=== PATIENT | male | born 1960 | race Caucasian/White ===

== ENCOUNTER 2025-05-26 22:44 | Inpatient (IN) | payer MEDICARE ==
[~2025-05-26] VITALS: Ht 167.6 cm; Wt 68.9 kg
[2025-05-26 22:54] VITALS: O2SAT 96
[2025-05-26] MEDS: SODIUM CHLORIDE 0.9% 1,000 ML IV ONE (23:30)
[2025-05-27] VITALS (86 sets, daily range): BP systolic 99–154; BP diastolic 57–126; PULSE 66–112; RESP 11–29; TEMP 36.8–37.2; O2SAT 94–100
[2025-05-27] MEDS: IOHEXOL-350 100 ML BOTTLE ONE (00:39)
[2025-05-27 00:46] LABS: BASOPHILS % 0.3 % (0.0-2.0); EOSINOPHILS % 0.2 % (0.0-5.0); HEMATOCRIT. 39.3 % (42.0-52.0); HEMOGLOBIN. 12.6 g/dL (14.0-18.0); LYMPHOCYTES % 13.1 % (20.0-50.0); MEAN PLATELET VOLUME 10.2 fl (7.4-10.4); MONOCYTES % 7.1 % (2.0-8.0); NEUTROPHILS % 79.3 % (40.0-76.0); PLATELET 320 x1000/uL (130-400); RED BLOOD CELL COUNT 4.30 mill/uL (4.7-6.1); RED CELL DISTRIBUTION WIDTH 15.7 % (11.6-14.6)
[2025-05-27 00:56] LABS: CREATININE 0.8 mg/dL (0.6-1.3)
[2025-05-27 00:57] LABS: UREA NITROGEN BLOOD 10 mg/dL (9-23)
[2025-05-27 00:58] LABS: ASPARTATE AMINOTRANSFERASE 38 IU/L (<34)
[2025-05-27 00:59] LABS: BILIRUBIN DIRECT < 0.1 mg/dL (<=3.0); BILIRUBIN TOTAL 0.3 mg/dL (0.1-1.0); PROTEIN TOTAL 6.8 g/dL (6.0-8.3)
[2025-05-27] MEDS ORDERED: MANNITOL 20% (20GM/100ML) BAG 500ML PREMIX IV ONE (01:15)
[2025-05-27] MEDS: LEVETIRACETAM 500MG PREMIX 100 ML IV ONE (01:20)
[2025-05-27 01:21] LABS: CLARITY URINE CLEAR (CLEAR); COLOR URINE YELLOW (YELLOW); GLUCOSE URINE 3+ (NEGATIVE); KETONES URINE 2+ (NEGATIVE); LEUKOCYTE ESTERASE URINE NEGATIVE (NEGATIVE); NITRITE URINE NEGATIVE (NEGATIVE); OCCULT BLOOD URINE NEGATIVE (NEGATIVE); PH URINE 5.5 (4.5-8.0); PROTEIN URINE NEGATIVE (NEGATIVE); SPECIFIC GRAVITY URINE 1.040 (1.005-1.030); UROBILINOGEN URINE 0.2 E.U./dL (0.2-1.0)
[2025-05-27 01:35] LABS: INR 1.0
[2025-05-27 01:35] LABS: BG DEOXYHEMOGLOBIN 72.2 % (0.0-5.0)
[2025-05-27] MEDS: MANNITOL 20% 250 ML IV NR (01:42)
[2025-05-27 04:15] LABS: SQUAMOUS EPITHELIAL CELL URINE FEW /lpf (RARE/1+)
[2025-05-27 04:17] LABS: RBC URINE 0-2 /hpf (0-2); WBC URINE 0-2 /hpf (0-2)
[2025-05-27 04:19] LABS: BACTERIA URINE NONE SEEN
[2025-05-27 04:20] LABS: YEAST URINE 1+
[2025-05-27] MEDS ORDERED: DEXTROSE 50% WATER 50ML SYRINGE IV PRN (04:30)
[2025-05-27] MEDS ORDERED: BLOOD SUGAR DIAGNOSTIC STRIP TEST SCH (04:30)
[2025-05-27] MEDS: BLOOD SUGAR DIAGNOSTIC STRIP TEST SCH ×2 (04:35→08:18)
[2025-05-27] MEDS: DEXT 5%/LACTATED RINGERS 1,000 ML IV SCH (04:35)
[2025-05-27] MEDS: INSULIN LISPRO 100 UNITS/ML SUBCUT NR (04:52)
[2025-05-27] MEDS: INSULIN LISPRO 100 UNITS/ML SUBCUT SCH ×2 (06:00→10:46)
[2025-05-27] MEDS ORDERED: INSULIN LISPRO 100 UNITS/ML SUBCUT SCH (07:00)
[2025-05-27] MEDS: LACTATED RINGERS 1,000 ML IV SCH (07:02)
[2025-05-27] MEDS: MAGNESIUM 2 G PREMIX 50 ML IV NR (08:36)
[2025-05-27] MEDS: LEVETIRACETAM 500MG PREMIX 100 ML IV SCH (08:36)
[2025-05-27] MEDS ORDERED: LEVETIRACETAM 500MG in NACL 100ML PREMIX IV SCH (09:00)
[2025-05-27 09:28] LABS: BASOPHILS % 0.1 % (0.0-2.0); EOSINOPHILS % 0.0 % (0.0-5.0); HEMATOCRIT. 39.8 % (42.0-52.0); HEMOGLOBIN. 13.0 g/dL (14.0-18.0); LYMPHOCYTES % 9.7 % (20.0-50.0); MEAN PLATELET VOLUME 10.2 fl (7.4-10.4); MONOCYTES % 4.6 % (2.0-8.0); NEUTROPHILS % 85.6 % (40.0-76.0); PLATELET 321 x1000/uL (130-400); RED BLOOD CELL COUNT 4.44 mill/uL (4.7-6.1); RED CELL DISTRIBUTION WIDTH 15.6 % (11.6-14.6)
[2025-05-27 09:41] LABS: CREATININE 0.6 mg/dL (0.6-1.3); TRIGLYCERIDE 158 mg/dL (0-150); UREA NITROGEN BLOOD 9 mg/dL (9-23)
[2025-05-27 09:42] LABS: LDL CHOLESTEROL 205 mg/dL (5-100)
[2025-05-27] MEDS ORDERED: INSULIN GLARGINE 100 UNITS/ML SUBCUT SCH (10:00)
[2025-05-27] MEDS: INSULIN GLARGINE 100 UNITS/ML SUBCUT SCH (10:31)
[2025-05-27] MEDS: MANNITOL 20% (20GM/100ML) BAG 500ML PREMIX IV SCH (15:44)
[2025-05-27 22:48] LABS: BG BASE EXCESS 2.4 mmol/L (-2.0-3.0); BG CARBOXYHEMOGLOBIN 1.3 % (0.5-1.5); BG DEOXYHEMOGLOBIN 3.7 % (0.0-5.0); BG FRACTION INSPIRED OXYGEN 21; BG HCO3 ACT 26.4 mmol/L (21.0-28.0); BG METHEMOGLOBIN 0.0 % (0.5-1.5); BG OXYGEN SATURATION 96.3 % (94.0-98.0); BG OXYHEMOGLOBIN 95.0 % (94.0-98.0); BG PCO2 38.8 mmHg (35.0-48.0); BG PH 7.450 (7.350-7.450); BG PO2 78.5 mmHg (83.0-108.0); BG SAMPLE SITE RIGHT RADIAL; BG TOTAL HEMOGLOBIN 14.1 g/dL (13.5-17.5); BG VENT MODE ROOM AIR
[2025-05-28] VITALS (99 sets, daily range): BP systolic 102–145; BP diastolic 58–86; PULSE 52–91; RESP 9–26; TEMP 36.4–37.3; O2SAT 95–100
[2025-05-28] MEDS: NICARDIPINE 100 MG in SODIUM CHLORIDE 0.9% 60 ML IV PRN (01:45)
[2025-05-28 05:34] LABS: BASOPHILS % 0.1 % (0.0-2.0); EOSINOPHILS % 0.0 % (0.0-5.0); HEMATOCRIT. 41.3 % (42.0-52.0); HEMOGLOBIN. 13.1 g/dL (14.0-18.0); LYMPHOCYTES % 25.1 % (20.0-50.0); MEAN PLATELET VOLUME 10.1 fl (7.4-10.4); MONOCYTES % 8.8 % (2.0-8.0); NEUTROPHILS % 66.0 % (40.0-76.0); PLATELET 295 x1000/uL (130-400); RED BLOOD CELL COUNT 4.50 mill/uL (4.7-6.1); RED CELL DISTRIBUTION WIDTH 16.2 % (11.6-14.6)
[2025-05-28 05:40] LABS: CREATININE 0.6 mg/dL (0.6-1.3)
[2025-05-28 05:41] LABS: UREA NITROGEN BLOOD 13 mg/dL (9-23)
[2025-05-28] MEDS ORDERED: MANNITOL 20% (20GM/100ML) BAG 500ML PREMIX IV ONE (06:45)
[2025-05-28] MEDS: MANNITOL 20% 100 ML IV NR (06:51)
[2025-05-29] VITALS (80 sets, daily range): BP systolic 113–146; BP diastolic 61–99; PULSE 73–95; RESP 14–24; TEMP 37.2–37.8; O2SAT 98–100
[2025-05-29] MEDS: NICARDIPINE 100 MG in SODIUM CHLORIDE 0.9% 60 ML IV PRN (06:05)
[2025-05-29 06:39] LABS: CREATININE 0.6 mg/dL (0.6-1.3); UREA NITROGEN BLOOD 11 mg/dL (9-23)
[2025-05-29 06:43] LABS: BASOPHILS % 0.2 % (0.0-2.0); EOSINOPHILS % 0.0 % (0.0-5.0); HEMATOCRIT. 41.8 % (42.0-52.0); HEMOGLOBIN. 13.4 g/dL (14.0-18.0); LYMPHOCYTES % 17.0 % (20.0-50.0); MEAN PLATELET VOLUME 10.4 fl (7.4-10.4); MONOCYTES % 9.4 % (2.0-8.0); NEUTROPHILS % 73.4 % (40.0-76.0); PLATELET 314 x1000/uL (130-400); RED BLOOD CELL COUNT 4.60 mill/uL (4.7-6.1); RED CELL DISTRIBUTION WIDTH 16.1 % (11.6-14.6)
[2025-05-29] MEDS: BLOOD SUGAR DIAGNOSTIC STRIP TEST SCH (11:19)
[2025-05-29] MEDS: KCL 20MEQ/100ML PREMIX 100 ML IV SCH (11:24)
[2025-05-29] MEDS: INSULIN LISPRO 100 UNITS/ML SUBCUT SCH (11:25)
[2025-05-30] VITALS (101 sets, daily range): BP systolic 105–143; BP diastolic 44–118; PULSE 73–111; RESP 11–22; TEMP 37.2–37.8; O2SAT 93–100
[2025-05-30 06:39] LABS: BASOPHILS % 0.3 % (0.0-2.0); EOSINOPHILS % 0.1 % (0.0-5.0); HEMATOCRIT. 45.3 % (42.0-52.0); HEMOGLOBIN. 14.5 g/dL (14.0-18.0); LYMPHOCYTES % 16.8 % (20.0-50.0); MEAN PLATELET VOLUME 10.4 fl (7.4-10.4); MONOCYTES % 13.1 % (2.0-8.0); NEUTROPHILS % 69.7 % (40.0-76.0); PLATELET 294 x1000/uL (130-400); RED BLOOD CELL COUNT 4.87 mill/uL (4.7-6.1); RED CELL DISTRIBUTION WIDTH 16.4 % (11.6-14.6)
[2025-05-30 06:52] LABS: CREATININE 0.6 mg/dL (0.6-1.3)
[2025-05-30 06:53] LABS: UREA NITROGEN BLOOD 10 mg/dL (9-23)
[2025-05-30] MEDS: IOHEXOL-350 100 ML BOTTLE ONE (08:40)
[2025-05-30] MEDS ORDERED: IPRATROPIUM/ALBUTEROL 0.5-3(2.5)MG/3ML NEB HHN PRN (09:30)
[2025-05-30] MEDS: KCL 20MEQ/100ML PREMIX 100 ML IV SCH (09:32)
[2025-05-30] MEDS: PANTOPRAZOLE SODIUM 40 MG/VIAL IV SCH (09:32)
[2025-05-30 16:04] LABS: CLARITY URINE TURBID (CLEAR); COLOR URINE YELLOW (YELLOW); GLUCOSE URINE 3+ (NEGATIVE); KETONES URINE 4+ (NEGATIVE); LEUKOCYTE ESTERASE URINE 1+ (NEGATIVE); NITRITE URINE NEGATIVE (NEGATIVE); OCCULT BLOOD URINE 2+ (NEGATIVE); PH URINE 5.5 (4.5-8.0); PROTEIN URINE 1+ (NEGATIVE); SPECIFIC GRAVITY URINE 1.023 (1.005-1.030); UROBILINOGEN URINE 0.2 E.U./dL (0.2-1.0)
[2025-05-30] MEDS: CEFTRIAXONE 1GM/50ML 50 ML IV SCH (16:06)
[2025-05-30 16:15] LABS: WBC URINE 50-100 /hpf (0-2)
[2025-05-30 16:18] LABS: BACTERIA URINE 1+; YEAST URINE 4+
[2025-05-30 16:20] LABS: SQUAMOUS EPITHELIAL CELL URINE NONE SEEN /lpf (RARE/1+)
[2025-05-31] VITALS (95 sets, daily range): BP systolic 105–177; BP diastolic 65–104; PULSE 67–120; RESP 12–26; TEMP 36.9–38.9; O2SAT 91–100
[2025-05-31] MEDS: ACETAMINOPHEN 650MG SUPP PR PRN (02:36)
[2025-05-31 05:58] LABS: BASOPHILS % 0.2 % (0.0-2.0); EOSINOPHILS % 0.0 % (0.0-5.0); HEMATOCRIT. 44.5 % (42.0-52.0); HEMOGLOBIN. 14.2 g/dL (14.0-18.0); LYMPHOCYTES % 16.9 % (20.0-50.0); MEAN PLATELET VOLUME 10.0 fl (7.4-10.4); MONOCYTES % 13.3 % (2.0-8.0); NEUTROPHILS % 69.6 % (40.0-76.0); PLATELET 278 x1000/uL (130-400); RED BLOOD CELL COUNT 4.81 mill/uL (4.7-6.1); RED CELL DISTRIBUTION WIDTH 15.7 % (11.6-14.6)
[2025-05-31 06:44] LABS: CREATININE 0.5 mg/dL (0.6-1.3); UREA NITROGEN BLOOD 13 mg/dL (9-23)
[2025-05-31] MEDS: KCL 20MEQ/100ML PREMIX 100 ML IV SCH (08:41)
[2025-05-31] MEDS ORDERED: POTASSIUM CHLORIDE 20MEQ/PACKET PO NR (09:15)
[2025-05-31] MEDS: POTASSIUM CHLORIDE 20MEQ/PACKET PO NR (13:11)
[2025-05-31] MEDS: ACETAMINOPHEN 650MG/20.3ML UDC NG PRN (20:09)
[2025-06-01] VITALS (88 sets, daily range): BP systolic 92–145; BP diastolic 60–89; PULSE 60–106; RESP 9–22; TEMP 37–38.5; O2SAT 96–99
[2025-06-01 05:40] LABS: CREATININE 0.5 mg/dL (0.6-1.3)
[2025-06-01 05:41] LABS: UREA NITROGEN BLOOD 12 mg/dL (9-23)
[2025-06-01] MEDS: POTASSIUM CHLORIDE 20MEQ/PACKET PO NR (06:44)
[2025-06-01] MEDS: KCL 20MEQ/100ML PREMIX 100 ML IV SCH (06:45)
[2025-06-01 07:15] LABS: HEMATOCRIT. 45.7 % (42.0-52.0); HEMOGLOBIN. 14.4 g/dL (14.0-18.0); MEAN PLATELET VOLUME 10.2 fl (7.4-10.4); PLATELET 267 x1000/uL (130-400); RED BLOOD CELL COUNT 4.91 mill/uL (4.7-6.1); RED CELL DISTRIBUTION WIDTH 15.7 % (11.6-14.6)
[2025-06-01] MEDS: MAGNESIUM 1 G PREMIX 100 ML IV NR (09:12)
[2025-06-01 11:07] LABS: LYMPHOCYTES % MANUAL 13.0 % (20.0-50.0); MONOCYTES % MANUAL 16.0 % (2.0-8.0); NEUTROPHILS % MANUAL 71.0 % (45.0-75.0); PLATELET ESTIMATE NORMAL
[2025-06-01] MEDS: CEFTRIAXONE 1GM/50ML 50 ML IV SCH (13:01)
[2025-06-01 17:40] LABS: INFLUENZA TYPE A Presumptive Negative (Pres. Neg.)
[2025-06-01 17:41] LABS: INFLUENZA TYPE B Presumptive Negative (Pres. Neg.); RESPIRATORY SYNCYTIAL VIRUS Not Detected (Not Detectd)
[2025-06-01] MEDS: MICAFUNGIN 100 MG in SODIUM CHLORIDE 0.9% 100 ML IV SCH (20:18)
[2025-06-02] VITALS (57 sets, daily range): BP systolic 83–154; BP diastolic 62–87; PULSE 64–108; RESP 10–34; TEMP 36.9–38.3; O2SAT 96–99
[2025-06-02 05:47] LABS: BASOPHILS % 0.1 % (0.0-2.0); EOSINOPHILS % 0.2 % (0.0-5.0); HEMATOCRIT. 42.5 % (42.0-52.0); HEMOGLOBIN. 13.7 g/dL (14.0-18.0); LYMPHOCYTES % 8.2 % (20.0-50.0); MEAN PLATELET VOLUME 10.8 fl (7.4-10.4); MONOCYTES % 8.0 % (2.0-8.0); NEUTROPHILS % 83.5 % (40.0-76.0); PLATELET 271 x1000/uL (130-400); RED BLOOD CELL COUNT 4.60 mill/uL (4.7-6.1); RED CELL DISTRIBUTION WIDTH 15.5 % (11.6-14.6)
[2025-06-02 06:01] LABS: CREATININE 0.4 mg/dL (0.6-1.3); UREA NITROGEN BLOOD 12 mg/dL (9-23)
[2025-06-02] MEDS: POTASSIUM CHLORIDE 20MEQ TABLET SR PO NR (10:11)
[2025-06-02] MEDS: MICAFUNGIN 100 MG in SODIUM CHLORIDE 0.9% 100 ML IV SCH (20:10)
[2025-06-02] MEDS: INSULIN GLARGINE 100 UNITS/ML SUBCUT SCH (22:22)
[2025-06-03] VITALS (94 sets, daily range): BP systolic 99–143; BP diastolic 62–89; PULSE 74–111; RESP 11–32; TEMP 36.8–37.9; O2SAT 94–100
[2025-06-03 05:59] LABS: BASOPHILS % 0.1 % (0.0-2.0); EOSINOPHILS % 0.1 % (0.0-5.0); HEMATOCRIT. 43.7 % (42.0-52.0); HEMOGLOBIN. 13.9 g/dL (14.0-18.0); LYMPHOCYTES % 9.0 % (20.0-50.0); MEAN PLATELET VOLUME 11.2 fl (7.4-10.4); MONOCYTES % 9.7 % (2.0-8.0); NEUTROPHILS % 81.1 % (40.0-76.0); PLATELET 257 x1000/uL (130-400); RED BLOOD CELL COUNT 4.69 mill/uL (4.7-6.1); RED CELL DISTRIBUTION WIDTH 15.7 % (11.6-14.6)
[2025-06-03 06:24] LABS: CREATININE 0.4 mg/dL (0.6-1.3); UREA NITROGEN BLOOD 12 mg/dL (9-23)
[2025-06-03] MEDS: INSULIN GLARGINE 100 UNITS/ML SUBCUT SCH (09:58)
[2025-06-04] VITALS (91 sets, daily range): BP systolic 90–142; BP diastolic 63–95; PULSE 76–113; RESP 15–23; TEMP 36.4–38.3; O2SAT 79–100
[2025-06-04 07:02] LABS: BASOPHILS % 0.5 % (0.0-2.0); EOSINOPHILS % 0.0 % (0.0-5.0); HEMATOCRIT. 39.7 % (42.0-52.0); HEMOGLOBIN. 12.6 g/dL (14.0-18.0); LYMPHOCYTES % 10.2 % (20.0-50.0); MEAN PLATELET VOLUME 10.8 fl (7.4-10.4); MONOCYTES % 10.4 % (2.0-8.0); NEUTROPHILS % 78.9 % (40.0-76.0); PLATELET 248 x1000/uL (130-400); RED BLOOD CELL COUNT 4.31 mill/uL (4.7-6.1); RED CELL DISTRIBUTION WIDTH 15.5 % (11.6-14.6)
[2025-06-04 07:19] LABS: CREATININE 0.5 mg/dL (0.6-1.3)
[2025-06-04 07:20] LABS: UREA NITROGEN BLOOD 17 mg/dL (9-23)
[2025-06-04] MEDS: POTASSIUM CHLORIDE 20MEQ/PACKET PO NR (22:09)
[2025-06-05] VITALS (11 sets, daily range): BP systolic 94–134; BP diastolic 61–88; PULSE 72–109; RESP 14–19; TEMP 36.7–38.9; O2SAT 95–98
[2025-06-06] VITALS (18 sets, daily range): BP systolic 104–139; BP diastolic 53–89; PULSE 68–92; RESP 12–19; TEMP 36.8–37.9; O2SAT 93–100
[2025-06-06 05:58] LABS: CREATININE 0.4 mg/dL (0.6-1.3); UREA NITROGEN BLOOD 14 mg/dL (9-23)
[2025-06-06] MEDS ORDERED: NALOXONE HCL 0.4MG/ML VIAL IV PRN (19:45)
[2025-06-06] MEDS: HYDROCODONE/ACETAMINOPHEN 5/325MG TABLET PO PRN (20:10)
[2025-06-06] MEDS: CEFTRIAXONE 1GM/50ML 50 ML IV SCH (20:19)
[2025-06-07] VITALS (30 sets, daily range): BP systolic 110–151; BP diastolic 56–81; PULSE 63–81; RESP 13–34; TEMP 36.2–36.9; O2SAT 95–98
[2025-06-07 13:28] LABS: BASOPHILS % 0.1 % (0.0-2.0); EOSINOPHILS % 0.8 % (0.0-5.0); HEMATOCRIT. 35.7 % (42.0-52.0); HEMOGLOBIN. 11.8 g/dL (14.0-18.0); LYMPHOCYTES % 17.8 % (20.0-50.0); MEAN PLATELET VOLUME 10.7 fl (7.4-10.4); MONOCYTES % 12.6 % (2.0-8.0); NEUTROPHILS % 68.7 % (40.0-76.0); PLATELET 332 x1000/uL (130-400); RED BLOOD CELL COUNT 3.88 mill/uL (4.7-6.1); RED CELL DISTRIBUTION WIDTH 15.0 % (11.6-14.6)
[2025-06-07 13:41] LABS: INR 1.1
[2025-06-07 13:54] LABS: CREATININE 0.4 mg/dL (0.6-1.3); UREA NITROGEN BLOOD 9 mg/dL (9-23)
[2025-06-07 13:56] LABS: ASPARTATE AMINOTRANSFERASE 49 IU/L (<34); BILIRUBIN DIRECT < 0.1 mg/dL (<=3.0); BILIRUBIN TOTAL 0.3 mg/dL (0.1-1.0); PROTEIN TOTAL 5.8 g/dL (6.0-8.3)
[2025-06-08] VITALS (36 sets, daily range): BP systolic 105–142; BP diastolic 56–95; PULSE 66–83; RESP 14–22; TEMP 36.4–36.9; O2SAT 96–98
[2025-06-08 12:15] LABS: BASOPHILS % 0.2 % (0.0-2.0); EOSINOPHILS % 0.8 % (0.0-5.0); HEMATOCRIT. 36.3 % (42.0-52.0); HEMOGLOBIN. 12.1 g/dL (14.0-18.0); LYMPHOCYTES % 20.4 % (20.0-50.0); MEAN PLATELET VOLUME 10.0 fl (7.4-10.4); MONOCYTES % 13.8 % (2.0-8.0); NEUTROPHILS % 64.8 % (40.0-76.0); PLATELET 404 x1000/uL (130-400); RED BLOOD CELL COUNT 3.94 mill/uL (4.7-6.1); RED CELL DISTRIBUTION WIDTH 14.7 % (11.6-14.6)
[2025-06-08 12:28] LABS: CREATININE 0.4 mg/dL (0.6-1.3); UREA NITROGEN BLOOD 10 mg/dL (9-23)
[2025-06-08] MEDS: INSULIN GLARGINE 100 UNITS/ML SUBCUT SCH (23:28)
[2025-06-09] VITALS (12 sets, daily range): BP systolic 105–125; BP diastolic 58–71; PULSE 69–82; RESP 13–19; TEMP 36.7–38; O2SAT 96–99
[2025-06-09 07:23] LABS: CREATININE 0.4 mg/dL (0.6-1.3); UREA NITROGEN BLOOD 5 mg/dL (9-23)
[2025-06-09 07:24] LABS: BASOPHILS % 0.2 % (0.0-2.0); EOSINOPHILS % 1.0 % (0.0-5.0); HEMATOCRIT. 39.1 % (42.0-52.0); HEMOGLOBIN. 12.9 g/dL (14.0-18.0); LYMPHOCYTES % 23.9 % (20.0-50.0); MEAN PLATELET VOLUME 10.4 fl (7.4-10.4); MONOCYTES % 14.7 % (2.0-8.0); NEUTROPHILS % 60.2 % (40.0-76.0); PLATELET 402 x1000/uL (130-400); RED BLOOD CELL COUNT 4.24 mill/uL (4.7-6.1); RED CELL DISTRIBUTION WIDTH 15.2 % (11.6-14.6)
[2025-06-10] VITALS (12 sets, daily range): BP systolic 96–124; BP diastolic 57–76; PULSE 67–92; RESP 13–19; TEMP 36.4–37.1; O2SAT 96–99
[2025-06-10 06:27] LABS: BASOPHILS % 0.4 % (0.0-2.0); EOSINOPHILS % 1.6 % (0.0-5.0); HEMATOCRIT. 37.9 % (42.0-52.0); HEMOGLOBIN. 12.6 g/dL (14.0-18.0); LYMPHOCYTES % 17.2 % (20.0-50.0); MEAN PLATELET VOLUME 9.6 fl (7.4-10.4); MONOCYTES % 10.1 % (2.0-8.0); NEUTROPHILS % 70.7 % (40.0-76.0); PLATELET 464 x1000/uL (130-400); RED BLOOD CELL COUNT 4.12 mill/uL (4.7-6.1); RED CELL DISTRIBUTION WIDTH 14.7 % (11.6-14.6)
[2025-06-10 06:37] LABS: CREATININE 0.4 mg/dL (0.6-1.3); UREA NITROGEN BLOOD 10 mg/dL (9-23)
[2025-06-11] VITALS (12 sets, daily range): BP systolic 102–152; BP diastolic 66–100; PULSE 79–96; RESP 16–23; TEMP 36.4–37.1; O2SAT 96–100
[2025-06-12] VITALS (17 sets, daily range): BP systolic 87–139; BP diastolic 58–97; PULSE 68–102; RESP 12–27; TEMP 36.4–37.7; O2SAT 96–98
[2025-06-13] VITALS (10 sets, daily range): BP systolic 107–162; BP diastolic 72–88; PULSE 81–92; RESP 14–21; TEMP 36.5–37; O2SAT 90–98
[2025-06-13 19:59] LABS: BASOPHILS % 0.2 % (0.0-2.0); EOSINOPHILS % 0.8 % (0.0-5.0); HEMATOCRIT. 43.1 % (42.0-52.0); HEMOGLOBIN. 13.6 g/dL (14.0-18.0); LYMPHOCYTES % 15.7 % (20.0-50.0); MEAN PLATELET VOLUME 8.6 fl (7.4-10.4); MONOCYTES % 7.4 % (2.0-8.0); NEUTROPHILS % 75.9 % (40.0-76.0); PLATELET 559 x1000/uL (130-400); RED BLOOD CELL COUNT 4.57 mill/uL (4.7-6.1); RED CELL DISTRIBUTION WIDTH 15.5 % (11.6-14.6)
[2025-06-13 20:14] LABS: CREATININE 0.5 mg/dL (0.6-1.3); UREA NITROGEN BLOOD 8 mg/dL (9-23)
[2025-06-14] VITALS: BP 114/92; PULSE 102; RESP 25; TEMP 37.1; O2SAT 96
[2025-06-14 04:00] VITALS: BP 124/82; PULSE 98; RESP 16; TEMP 36.8; O2SAT 97
[2025-06-14 08:00] VITALS: BP 137/78; PULSE 94; RESP 18; TEMP 36.2; O2SAT 98
[2025-06-14 12:00] VITALS: BP 94/64; PULSE 80; RESP 15; TEMP 36.2; O2SAT 97
[2025-06-14 16:00] VITALS: BP 114/64; PULSE 96; RESP 21; TEMP 36.3; O2SAT 97
[2025-06-14 20:00] VITALS: BP 111/69; PULSE 94; RESP 13; TEMP 36.7; O2SAT 97
[2025-06-15] VITALS (7 sets, daily range): BP systolic 95–140; BP diastolic 61–82; PULSE 72–88; RESP 15–18; TEMP 36.8–37.3; O2SAT 96–98
== END 2025-06-15 16:00 | DRG 82 ==
LOC: ER 22:44 → MICUNO 05-27 01:22 → EDBEDREQ 05-27 01:32 → EDBEDREQDT 05-27 01:32 → EDBEDREQSVC 05-27 01:32 → EDBEDREQTM 05-27 01:32 → ENRESERV 05-27 02:08 → MICUNO 05-31 14:45 → MICUSO 06-03 08:42 → 5EST 06-04 23:05
PROVIDERS: ADMIT Internal Medicine; ATTEND Internal Medicine
PROC: 4A00X4Z Measurement of Central Nervous Electrical Activity, External Approach (ICD-10-PCS; principal; 2025-06-03)
DX: S06.5X9A Traumatic subdural hemorrhage with loss of consciousness of unspecified duration, initial encounter (principal); A41.9 Sepsis, unspecified organism; G82.50 Quadriplegia, unspecified; B37.49 Other urogenital candidiasis; E87.0 Hyperosmolality and hypernatremia; G93.40 Encephalopathy, unspecified; R47.01 Aphasia; T82.838A Hemorrhage due to vascular prosthetic devices, implants and grafts, initial encounter; D64.9 Anemia, unspecified; S06.6X9A Traumatic subarachnoid hemorrhage with loss of consciousness of unspecified duration, initial encounter; Z20.822 Contact with and (suspected) exposure to COVID-19; M48.02 Spinal stenosis, cervical region; M47.812 Spondylosis without myelopathy or radiculopathy, cervical region; E83.42 Hypomagnesemia; E11.65 Type 2 diabetes mellitus with hyperglycemia; I10 Essential (primary) hypertension; S00.01XA Abrasion of scalp, initial encounter; E87.6 Hypokalemia; R13.12 Dysphagia, oropharyngeal phase; E78.00 Pure hypercholesterolemia, unspecified; K76.0 Fatty (change of) liver, not elsewhere classified; F17.210 Nicotine dependence, cigarettes, uncomplicated; Z79.899 Other long term (current) drug therapy; Z83.3 Family history of diabetes mellitus; W01.0XXA Fall on same level from slipping, tripping and stumbling without subsequent striking against object, initial encounter; Y93.89 Activity, other specified; Y92.89 Other specified places as the place of occurrence of the external cause; Y99.8 Other external cause status; Y83.8 Other surgical procedures as the cause of abnormal reaction of the patient, or of later complication, without mention of misadventure at the time of the procedure
CPT/HCPCS: 36415; 36600; 70496; 70498; 71045; 76700; 80048; 80061; 80076; 81003; 82010; 82375; 82803; 82805; 82962; 83036; 83605; 83735; 84132; 84145; 85025; 86850; 86900; 87070; 87077; 87106; 87186; 87420; 87426; 87804; 92610; 93005; 95816; 96365; 97110; 97112; 97162; 97166; 97530; 97535; 99291; A4606; J0696; J1815; J1953; J2248; J2470; J3475; J3480; J3490; J7030; J7050; J7120; Q9967